=== PATIENT | male | born 1965 | race African-American/Black ===

== ENCOUNTER → 2016-08-12 | Outpatient (CLI) | payer OTHER ==
[~2016-08-12] MED LIST: ALLO300T2 PO; DICL75TA PO; LISI10TA3 PO; METF500T PO; ROBA500T PO
[2016-08-12 09:13] LABS: AUTOMATED NEUTROPHIL # 7.2 TH/MM3 (1.8-7.7); BASOPHIL # 0.1 TH/MM3 (0-0.2); BASOPHIL % 0.8 % (0.0-2.0); EOSINOPHIL % 0.1 % (0.0-4.0); HEMATOCRIT 33.8 % (39.0-51.0); HEMO FLAGS DIFF FINAL; LYMPH % 20.8 % (9.0-44.0); MEAN CELL VOLUME 90.3 FL (80.0-100.0); MEAN CORPUSCULAR HEMOGLOBIN 31.2 PG (27.0-34.0); MEAN CORPUSCULAR HGB CONC 34.6 % (32.0-36.0); MONO % 4.5 % (0.0-8.0); NEUT % 73.8 % (16.0-70.0); PLATELET COUNT 742 TH/MM3 (150-450); RED BLOOD COUNT 3.75 MIL/MM3 (4.50-5.90); RED CELL DISTRIBUTION WIDTH 14.1 % (11.6-17.2); WHITE BLOOD COUNT 9.7 TH/MM3 (4.0-11.0)
[2016-08-12 09:24] LABS: CHLORIDE 100 MEQ/L (98-107); POTASSIUM 4.1 MEQ/L (3.5-5.1); SODIUM (NA) 138 MEQ/L (136-145)
[2016-08-12 09:53] LABS: ALKALINE PHOSPHATASE 92 U/L (45-117); ALT (GPT) 14 U/L (12-78); ANION GAP 14 MEQ/L (5-15); AST (GOT) 18 U/L (15-37); BICARBONATE 24.5 MEQ/L (21.0-32.0); BLOOD UREA NITROGEN 13 MG/DL (7-18); GLOMERULAR FILTRATION RATE 82 ML/MIN (>89); GLUCOSE,FASTING 76 MG/DL (74-99); HDL CHOLESTEROL 118.3 MG/DL (40.0-60.0); LDL CHOLESTEROL 92 MG/DL (0-99); TOTAL BILIRUBIN ADULT 0.3 MG/DL (0.2-1.0); URIC ACID 10.5 MG/DL (2.6-7.2)
[2016-08-12 19:02] LABS: HEMOGLOBIN A1a 1.2 %; HEMOGLOBIN A1b 1.4 %; HEMOGLOBIN F 0.4 %; HEMOGLOBIN LA1C 1.8 %; HEMOGLOBIN P3 3.5 %
== END ==
LOC: CLAB 08:46
PROVIDERS: ATTEND Nurse Practitioner Family
DX: I10 Essential (primary) hypertension (principal); E11.9 Type 2 diabetes mellitus without complications; M10.9 Gout, unspecified
CPT/HCPCS: 36415; 80053; 80061; 83036; 84443; 84550; 85025

== ENCOUNTER → 2016-08-20 | Outpatient (CLI) | payer OTHER ==
[2016-08-20 11:05] LABS: PLATELET COUNT 435 TH/MM3 (150-450)
== END ==
LOC: CLAB 10:35
PROVIDERS: ATTEND Nurse Practitioner Family
DX: D47.3 Essential (hemorrhagic) thrombocythemia (principal)
CPT/HCPCS: 36415; 85049; 85060

== ENCOUNTER → 2017-02-11 | Outpatient (CLI) | payer OTHER | LOC: CLAB 07:35 | PROVIDERS: ATTEND Family Medicine | DX: D47.3 Essential (hemorrhagic) thrombocythemia (principal); M10.9 Gout, unspecified | CPT/HCPCS: 36415; 84550; 85049 ==